=== PATIENT | female | born 1980 | race Caucasian/White ===

== ENCOUNTER 2024-09-21 03:30 | Emergency (ER) | payer BC, OTHER ==
[~2024-09-21] VITALS: Ht 170.2 cm; Wt 86.2 kg
[2024-09-21] MEDS ORDERED: DIAZEPAM 10 MG/2 ML DISP.SYRIN ONE (03:58)
[2024-09-21] MEDS ORDERED: MECLIZINE HCL 25 MG TABLET ONE (03:58)
[2024-09-21] MEDS ORDERED: ONDANSETRON ODT 4 MG TAB.RAPDIS ONE (03:58)
[2024-09-21] MEDS: ONDANSETRON ODT 4 MG TAB.RAPDIS SL ONE (04:04)
[2024-09-21] MEDS: IV NS 1000 ML 1,000 ML IV ONE (04:04)
[2024-09-21] MEDS: DIAZEPAM 10 MG/2 ML DISP.SYRIN IM STA (04:04)
[2024-09-21] MEDS: MECLIZINE HCL 25 MG TABLET PO ONE (04:04)
[2024-09-21 04:11] LABS: CALCIUM 8.7 mg/dL (8.5-10.1); CREATININE 0.6 mg/dL (0.6-1.3); POTASSIUM 3.1 mmol/L (3.5-5.1)
[2024-09-21 04:18] LABS: BASOPHILS # (AUTO) 0.1 K/UL (0.0-0.2); BASOPHILS % (AUTO) 0.6 % (0.0-2.0); EOSINOPHILS # (AUTO) 0.1 K/uL (0.0-0.7); EOSINOPHILS % (AUTO) 0.9 % (0.0-7.0); HEMATOCRIT 37.8 % (31.2-41.9); HEMOGLOBIN 12.6 g/dL (10.9-14.3); LYMPHOCYTES # (AUTO) 4.3 K/uL (0.8-4.8); LYMPHOCYTES % (AUTO) 33.4 % (20.5-51.5); MEAN CORPUSCULAR HEMOGLOBIN 27.2 uug (24.7-32.8); MEAN CORPUSCULAR HGB CONC 33 g/dL (32.3-35.6); MEAN CORPUSCULAR VOLUME 81.5 fL (75.5-95.3); MONOCYTES # (AUTO) 0.6 K/uL (0.1-1.30); NEUTROPHILS # (AUTO) 7.8 K/uL (1.8-8.9); NEUTROPHILS % (AUTO) 60.1 % (38.5-71.5); PLATELET COUNT (AUTO) 367 K/uL (179-408); RED BLOOD CELL COUNT(AUTO) 4.64 MIL/uL (3.63-4.92); RED CELL DISTRIBUTION WIDTH 15.4 % (12.3-17.7)
[2024-09-21 04:19] LABS: DIFFERENTIAL COMMENT 1
[2024-09-21 04:24] LABS: ALBUMIN 3.8 g/dL (3.4-5.0); BILIRUBIN,TOTAL 0.3 mg/dL (0.2-1.0); TOTAL PROTEIN, SERUM 7.3 g/dL (6.4-8.2)
[2024-09-21 05:08] LABS: *BILIRUBIN,URIN NEGATIVE (NEGATIVE); *CLARITY,URINE CLEAR (CLEAR); *COLOR,URINE YELLOW (YELLOW); *KETONES,URINE 1+ (NEGATIVE); *PROTEIN,URINE NEGATIVE (NEGATIVE); *UROBILINOGEN,URINE 0.2 E.U./dl (NORMAL); LEUKOCYTE ESTERASE ,URINE TRACE (NEGATIVE); NITRITE, URINE NEGATIVE (NEGATIVE); UGLUCOSE NEGATIVE (NEGATIVE)
[2024-09-21 05:11] LABS: *BLOOD, URINE TRACE (NEGATIVE); *URINE HCG, QUAL NEGATIVE (NEGATIVE)
[2024-09-21 05:17] LABS: *AMPHETAMINE, URINE NEGATIVE (NEGATIVE); *BARBITURATE, URINE NEGATIVE (NEGATIVE); *BENZODIAZEPINE, URINE NEGATIVE (NEGATIVE); *CANNABINOID, URINE NEGATIVE (NEGATIVE); *COCCAINE, URINE NEGATIVE (NEGATIVE); *OPIATE, URINE NEGATIVE (NEGATIVE); *PHENCYCLIDINE SCREEN,URINE NEGATIVE (NEGATIVE); FENTANYL, URINE NEGATIVE (NEGATIVE)
[2024-09-21 05:37] LABS: WBC,URINE 0-3 /HPF (0-3)
[2024-09-21 05:38] LABS: BACTERIA,URINE FEW /HPF (NONE SEEN); SQUAMOUS EPITHELIAL CELL,UR FEW /HPF (NONE SEEN)
[2024-09-21] MEDS ORDERED: POTASSIUM CHLORIDE 20 MEQ TAB.PRT.SR ONE (05:50)
[2024-09-21] MEDS: POTASSIUM CHLORIDE 20 MEQ TAB.PRT.SR PO ONE (05:57)
[2024-09-21 06:07] VITALS: BP 165/93; TEMP 97.8; O2SAT 100
[2024-09-21] MEDS ORDERED: ONDA4TAB5 PO (06:09)
[2024-09-21] MEDS ORDERED: MECL-159 PO (06:09)
== END 2024-09-21 06:23 | disposition home or self-care (01) ==
LOC: ER 03:41
DX: R42 Dizziness and giddiness (principal); Z79.899 Other long term (current) drug therapy
CPT/HCPCS: 99284; 96360; 96361; 80053; 81001; 82962; 84703; 83880; 85025; 84484; 36415; 93005; 80307; 96372; J3360; J7040; A4606; A4663; J8597; Q0162